=== PATIENT | female | born 2000 | race Caucasian/White ===

== ENCOUNTER 2019-01-08 05:16 | Emergency (ER) | payer MEDICAID ==
[~2019-01-08] VITALS: Ht 170.2 cm; Wt 108.9 kg
[2019-01-08 05:30] VITALS: BP 125/79
[2019-01-08 07:12] LABS: Basophils # (auto) 0 uL; Eosinophils # (auto) 0.1 uL; Monocytes # (auto) 0.6 uL; Neutrophils # (auto) 7.2 uL
[2019-01-08 07:16] LABS: Basophils % (auto) 0.4 % (0.0-2.0); Eosinophils % (auto) 1.4 % (0.0-7.0); Hematocrit 39.1 % (36.0-46.0); Hemoglobin 12.9 g/dL (12.2-16.2); Lymphocytes # (auto) 1.3 uL; Lymphocytes % (auto) 13.7 % (10.0-50.0); Mean Corpuscular Hemoglobin 25.8 pg (28.0-32.0); Mean Corpuscular Volume 78.1 fL (80.0-100.0); Monocytes % (auto) 6.8 % (0.0-12.0); Neutrophils % (auto) 77.7 % (37.0-80.0); Platelet Count (auto) 256 10^3/uL (140-450); Red Cell Distribution Width 15.3 % (11.8-14.3); White Blood Cell 9.3 10^3/uL (4.4-10.8)
[2019-01-08 07:23] LABS: INR 0.97 (0.9-1.15); Partial Thromboplastin Time 23.9 sec (23.64-32.05)
[2019-01-08] MEDS ORDERED: ALUM & MAG HYDROX-SIMETH LIQ(MAALOX) 30 ML PO ONE (07:45)
[2019-01-08] MEDS ORDERED: LIDOCAINE VISCOUS 2% 15ML UD PO ONE (07:45)
[2019-01-08] MEDS ORDERED: DONNATAL 5ml ORAL Elix (BELLADONNA ALK-PHENOBARB) PO ONE (07:45)
[2019-01-08 08:01] LABS: Urine Amorphous Crystal FEW /hpf (None Seen); Urine Bacteria MOD /hpf (None Seen); Urine Blood 1+ /uL (Negative); Urine Mucus FEW (None Seen); Urine WBC 79 /hpf (0 - 5)
[2019-01-08] MEDS ORDERED: FOLIC ACID 1 MG TAB PO ONE (08:15)
[2019-01-08 08:23] LABS: Albumin 3.4 g/dL (3.4-5.0); Calcium 8.8 mg/dL (8.5-10.1); Magnesium 2.1 mg/dL (1.6-2.6); Potassium 3.3 mmol/L (3.5-5.1)
[2019-01-08 08:27] LABS: BUN/Creatinine Ratio 12.9; Bilirubin, Total 0.3 mg/dL (0.2-1.0); Total Protein 6.9 g/dL (6.4-8.2)
== END 2019-01-08 08:48 | disposition left against medical advice (07) ==
LOC: ER 05:16
DX: O21.9 Vomiting of pregnancy, unspecified (principal); O26.891 Other specified pregnancy related conditions, first trimester; R10.13 Epigastric pain; R19.7 Diarrhea, unspecified; Z3A.00 Weeks of gestation of pregnancy not specified
CPT/HCPCS: 36415; 80053; 81001; 81025; 82150; 83690; 83735; 85025; 85610; 85730

== ENCOUNTER 2019-01-18 00:40 | Emergency (ER) | payer MEDICAID ==
[~2019-01-18] VITALS: Ht 170.2 cm; Wt 110.2 kg
[2019-01-18 02:21] LABS: Urine Bacteria FEW /hpf (None Seen); Urine Blood TRACE /uL (Negative); Urine Mucus FEW (None Seen); Urine Specific Gravity 1.012 (1.001-1.035); Urine WBC 1 /hpf (0 - 5)
[2019-01-18 02:21] LABS: Basophils # (auto) 0.1 uL; Basophils % (auto) 0.8 % (0.0-2.0); Eosinophils # (auto) 0.2 uL; Hemoglobin 12.6 g/dL (12.2-16.2); Lymphocytes # (auto) 1.6 uL; Mean Corpuscular Hemoglobin 26.3 pg (28.0-32.0); Monocytes # (auto) 0.7 uL
[2019-01-18 02:23] LABS: Eosinophils % (auto) 3.1 % (0.0-7.0); Lymphocytes % (auto) 21.2 % (10.0-50.0); Mean Corpuscular Volume 77.4 fL (80.0-100.0); Monocytes % (auto) 9.5 % (0.0-12.0); Neutrophils # (auto) 4.8 uL; Neutrophils % (auto) 65.4 % (37.0-80.0); Platelet Count (auto) 257 10^3/uL (140-450); Red Blood Cells 4.78 10^6/uL (4.0-5.20); Red Cell Distribution Width 15.3 % (11.8-14.3); White Blood Cell 7.4 10^3/uL (4.4-10.8)
[2019-01-18 02:39] LABS: Albumin 3.4 g/dL (3.4-5.0); Calcium 8.5 mg/dL (8.5-10.1); Potassium 3.4 mmol/L (3.5-5.1)
[2019-01-18 02:41] LABS: BUN/Creatinine Ratio 13.2
[2019-01-18 02:43] LABS: Bilirubin, Total 0.2 mg/dL (0.2-1.0)
[2019-01-18 03:22] VITALS: BP 130/67
== END 2019-01-18 05:26 | disposition home or self-care (01) ==
LOC: ER 00:42
DX: O20.0 Threatened abortion (principal); Z3A.01 Less than 8 weeks gestation of pregnancy
CPT/HCPCS: 36415; 76801; 80053; 81001; 84702; 85025

== ENCOUNTER 2019-04-03 22:20 | Inpatient (IN) | payer MEDICAID ==
[~2019-04-03] VITALS: Ht 170.2 cm; Wt 107.9 kg
[2019-04-03 22:58] LABS: Basophils # (auto) 0 uL; Eosinophils # (auto) 0.1 uL; Monocytes # (auto) 0.6 uL
[2019-04-03 23:00] LABS: Basophils % (auto) 0.1 % (0.0-2.0); Eosinophils % (auto) 1.5 % (0.0-7.0); Hematocrit 41.3 % (36.0-46.0); Hemoglobin 14.1 g/dL (12.2-16.2); Lymphocytes # (auto) 0.8 uL; Lymphocytes % (auto) 10.1 % (10.0-50.0); Mean Corpuscular Hemoglobin 27.2 pg (28.0-32.0); Mean Corpuscular Hgb Conc. 34.2 g/dL (32.0-36.0); Mean Corpuscular Volume 79.3 fL (80.0-100.0); Monocytes % (auto) 7.8 % (0.0-12.0); Neutrophils # (auto) 6.7 uL; Neutrophils % (auto) 80.5 % (37.0-80.0); Platelet Count (auto) 212 10^3/uL (140-450); Red Blood Cells 5.21 10^6/uL (4.0-5.20); Red Cell Distribution Width 16.5 % (11.8-14.3); White Blood Cell 8.3 10^3/uL (4.4-10.8)
[2019-04-03 23:17] LABS: Albumin 3.1 g/dL (3.4-5.0); Calcium 8.3 mg/dL (8.5-10.1); Potassium 3.6 mmol/L (3.5-5.1)
[2019-04-03 23:19] LABS: BUN/Creatinine Ratio 10.3
[2019-04-03 23:22] LABS: Urine Bacteria FEW /hpf (None Seen); Urine Blood Negative /uL (Negative); Urine Mucus FEW (None Seen); Urine Specific Gravity 1.034 (1.001-1.035); Urine WBC 23 /hpf (0 - 5)
[2019-04-03 23:22] LABS: Bilirubin, Total 0.3 mg/dL (0.2-1.0); Total Protein 7.2 g/dL (6.4-8.2)
[2019-04-03] MEDS ORDERED: SODIUM CHLORIDE 0.9% 1,000 ML IVB ONE (23:35)
[2019-04-03] MEDS ORDERED: ONDANSETRON HCL 4 MG/2 ML VIAL IV ONE (23:45)
[2019-04-03] MEDS ORDERED: HYDROmorphone HCL 2 MG/ML VL IV ONE (23:45)
[2019-04-03 23:51] LABS: Amylase 34 U/L (25-115); Lipase 65 U/L (73-393)
[2019-04-04] MEDS ORDERED: ONDANSETRON HCL 4 MG/2 ML VIAL IV ONE (02:00)
[2019-04-04] MEDS ORDERED: cefTRIAXone 1GM/50ML D5W 50 ML IV ONE (02:30)
[2019-04-04] MEDS ORDERED: SODIUM CHLORIDE 0.9% 1,000 ML IV ONE (02:30)
[2019-04-04] MEDS ORDERED: HYDROmorphone HCL 2 MG/ML VL IV ONE (03:00)
[2019-04-04] MEDS ORDERED: PROMETHAZINE HCL 25 MG/ML 1ML IV ONE (03:45)
[2019-04-04] MEDS ORDERED: PROMETHAZINE HCL 25 MG/ML 1ML IV PRN ×2 (05:45→13:30)
[2019-04-04] MEDS: SODIUM CHLORIDE 0.9% 1,000 ML IV SCH ×2 (06:45→18:39)
[2019-04-04] MEDS: METOCLOPRAMIDE HCL 5MG/ml INJ 2ml VIAL IV SCH ×2 (14:03→21:37)
[2019-04-04 17:02] VITALS: BP 104/55
[2019-04-04] MEDS ORDERED: cefTRIAXone 1GM/50ML D5W 50 ML IV SCH (21:00)
[2019-04-04 22:23] VITALS: BP 108/64
== END 2019-04-04 23:45 | disposition left against medical advice (07) | DRG 566 ==
LOC: ER 22:20 → OVERFLOW 22:21 → EAST 04-04 08:35
PROVIDERS: ADMIT Nurse Practitioner; ATTEND Internal Medicine
DX: O26.612 Liver and biliary tract disorders in pregnancy, second trimester (principal); O23.42 Unspecified infection of urinary tract in pregnancy, second trimester; O99.89 Other specified diseases and conditions complicating pregnancy, childbirth and the puerperium; K80.20 Calculus of gallbladder without cholecystitis without obstruction; O21.1 Hyperemesis gravidarum with metabolic disturbance; Z86.32 Personal history of gestational diabetes; Z3A.17 17 weeks gestation of pregnancy
CPT/HCPCS: 36415; 76705; 76805; 80053; 81001; 82150; 83690; 83735; 84702; 85025; 96361; 96365; 96375; G0378; J0696; J2405

== ENCOUNTER 2019-07-31 01:21 | Observation (INO) | payer MEDICAID ==
[~2019-07-31] VITALS: Ht 167.6 cm; Wt 120.2 kg
[2019-07-31] MEDS ORDERED: ONDANSETRON HCL 4 MG/2 ML VIAL IV PRN (02:00)
[2019-07-31] MEDS ORDERED: LACTATED RINGER'S 1,000 ML IV SCH (02:00)
[2019-07-31] MEDS ORDERED: PREN27TA7 PO (03:28)
[2019-07-31 04:06] LABS: Amphetamine Screen, Urine NEGATIVE (NEGATIVE); Barbiturate Scree,Urine NEGATIVE (NEGATIVE); Benzodiazephine Screen, Urine NEGATIVE (NEGATIVE); Cannabinoid Screen, Urine POSITIVE (NEGATIVE); Cocaine Screen, Urine NEGATIVE (NEGATIVE)
[2019-07-31 04:13] LABS: Opiate Scree,Urine NEGATIVE (NEGATIVE); Phencyclidine Screen, Urine NEGATIVE (NEGATIVE)
[2019-07-31 04:25] LABS: Urine Amorphous Crystal MOD /hpf (None Seen); Urine Bacteria FEW /hpf (None Seen); Urine Blood Negative /uL (Negative); Urine Hyaline Cast FEW /lpf (0 - 2); Urine Mucus FEW (None Seen); Urine Specific Gravity 1.033 (1.001-1.035); Urine WBC 4 /hpf (0 - 5)
== END 2019-07-31 05:50 | disposition home or self-care (01) | DRG 566 ==
LOC: LDRP 01:21
PROVIDERS: ADMIT Specialist; ATTEND Specialist
DX: O99.613 Diseases of the digestive system complicating pregnancy, third trimester (principal); K80.20 Calculus of gallbladder without cholecystitis without obstruction; O21.2 Late vomiting of pregnancy; Z3A.34 34 weeks gestation of pregnancy
CPT/HCPCS: 59025; 76705; 76805; 80307; 81001; 81002; 96361; 96374; G0378; J2405; 96360; 96365; 96366

== ENCOUNTER 2020-11-05 08:43 | Emergency (ER) | payer MEDICAID ==
[~2020-11-05] VITALS: Ht 170.2 cm; Wt 117.9 kg
[~2020-11-05 08:43] MED LIST: PREN27TA7 PO
[2020-11-05 08:46] VITALS: BP 126/85
[2020-11-05 09:18] LABS: Urine WBC None Seen /hpf (0 - 5)
[2020-11-05 09:26] LABS: Urine Amorphous Crystal FEW /hpf (None Seen); Urine Bacteria NONE SEEN /hpf (None Seen); Urine Blood Negative /uL (Negative); Urine Mucus FEW (None Seen); Urine Specific Gravity 1.027 (1.001-1.035)
[2020-11-05 09:34] LABS: Albumin 3.9 g/dL (3.4-5.0); Basophils # (auto) 0.1 10 ^3/uL (0-0.2); Basophils % (auto) 0.4 % (0.0-2.0); Calcium 8.9 mg/dL (8.5-10.1); Eosinophils # (auto) 0 10 ^3/uL (0-0.8); Eosinophils % (auto) 0.2 % (0.0-7.0); Neutrophils # (auto) 14.6 10 ^3/uL (1.6-8.6); Potassium 4.1 mmol/L (3.5-5.1); Red Cell Distribution Width 14.5 % (11.8-14.3)
[2020-11-05 09:36] LABS: Hematocrit 43.1 % (36.0-46.0); Hemoglobin 14.4 g/dL (12.2-16.2); Lymphocytes # (auto) 1.6 10 ^3/uL (0.4-5.4); Lymphocytes % (auto) 9.3 % (10.0-50.0); Mean Corpuscular Hemoglobin 25.9 pg (28.0-32.0); Mean Corpuscular Hgb Conc. 33.4 g/dL (32.0-36.0); Mean Corpuscular Volume 77.5 fL (80.0-100.0); Monocytes # (auto) 0.9 10 ^3/uL (0-1.3); Monocytes % (auto) 5.5 % (0.0-12.0); Neutrophils % (auto) 84.6 % (37.0-80.0); Nucleated Red Blood Cells % 0.2 %; Platelet Count (auto) 375 10^3/uL (140-450); Red Blood Cells 5.56 10^6/uL (4.0-5.20); White Blood Cell 17.3 10^3/uL (4.4-10.8)
[2020-11-05 09:37] LABS: BUN/Creatinine Ratio 10.6; Bilirubin, Total 0.4 mg/dL (0.2-1.0); Total Protein 8.3 g/dL (6.4-8.2)
[2020-11-05] MEDS ORDERED: THIAMINE 100mg/ml INJ (200mg/2ml VIAL) IV ONE (11:00)
[2020-11-05] MEDS ORDERED: cefTRIAXone 1GM/50ML D5W 50 ML IV ONE (11:00)
[2020-11-05] MEDS ORDERED: SODIUM CHLORIDE 0.9% 1,000 ML IV ONE ×2 (11:00)
== END 2020-11-05 14:03 | disposition left against medical advice (07) ==
LOC: ER 08:43
DX: E86.0 Dehydration (principal); N39.0 Urinary tract infection, site not specified
CPT/HCPCS: 36415; 80053; 81001; 81025; 85025

== ENCOUNTER 2022-05-03 18:17 | Emergency (ER) | payer MEDICAID ==
[~2022-05-03] VITALS: Ht 170.2 cm; Wt 97.0 kg
[2022-05-03 19:11] VITALS: BP 124/72
[2022-05-03] MEDS ORDERED: ONDANSETRON HCL 4 MG/2 ML VIAL IV ONE (19:15)
[2022-05-03] MEDS ORDERED: MORPHINE SULFATE 4 MG/ML SYR/VIAL IV ONE (19:15)
[2022-05-03] MEDS ORDERED: SODIUM CHLORIDE 0.9% 1,000 ML IV ONE (19:15)
[2022-05-03 19:50] LABS: Basophils # (auto) 0 10 ^3/uL (0-0.2); Eosinophils # (auto) 0 10 ^3/uL (0-0.8); Hemoglobin 12.7 g/dL (12.2-16.2); Lymphocytes # (auto) 0.3 10 ^3/uL (0.4-5.4); Neutrophils # (auto) 3.3 10 ^3/uL (1.6-8.6); White Blood Cell 4.1 10^3/uL (4.4-10.8)
[2022-05-03 19:54] LABS: Basophils % (auto) 0.2 % (0.0-2.0); Eosinophils % (auto) 0.1 % (0.0-7.0); Hematocrit 38.1 % (36.0-46.0); Lymphocytes % (auto) 7.2 % (10.0-50.0); Mean Corpuscular Hemoglobin 24.9 pg (28.0-32.0); Mean Corpuscular Hgb Conc. 33.4 g/dL (32.0-36.0); Mean Corpuscular Volume 74.6 fL (80.0-100.0); Monocytes # (auto) 0.5 10 ^3/uL (0-1.3); Monocytes % (auto) 11.6 % (0.0-12.0); Neutrophils % (auto) 80.9 % (37.0-80.0); Red Blood Cells 5.11 10^6/uL (4.0-5.20); Red Cell Distribution Width 15.1 % (11.8-14.3)
[2022-05-03] MEDS ORDERED: ACETAMINOPHEN 325 MG TAB PO ONE (21:00)
[2022-05-03 21:31] LABS: Alanine Aminotransferase 23 U/L (13-56); Albumin 3.7 g/dL (3.4-5.0); Anion Gap 10 (5-15); Aspartate Aminotransferase 13 U/L (15-37); BUN/Creatinine Ratio 7.7; Blood Urea Nitrogen 6 mg/dL (7-18); Calcium 8.7 mg/dL (8.5-10.1); Carbon Dioxide 23 mmol/L (21-32); Chloride 105 mmol/L (98-107); GFR African American 118 mL/min; GFR Non-African American 97 mL/min; Glucose 107 mg/dL (74-106); Potassium 3.8 mmol/L (3.5-5.1); Sodium 138 mmol/L (136-145)
[2022-05-03 21:36] LABS: Alkaline Phosphatase 73 U/L (45-117); Bilirubin, Total 0.3 mg/dL (0.2-1.0); Total Protein 7.6 g/dL (6.4-8.2)
== END 2022-05-03 21:35 | disposition left against medical advice (07) ==
LOC: ER 18:19
DX: E86.0 Dehydration (principal); B34.9 Viral infection, unspecified; R51.9 Headache, unspecified; Z79.899 Other long term (current) drug therapy; Z20.822 Contact with and (suspected) exposure to COVID-19
CPT/HCPCS: 36415; 80053; 85025; 87426; 87804; 93005

== ENCOUNTER 2024-02-20 16:36 | Emergency (ER) | payer MEDICAID ==
[~2024-02-20] VITALS: Ht 170.2 cm; Wt 127.8 kg
[2024-02-20 16:38] VITALS: BP 154/76; PULSE 97; RESP 8; O2SAT 97
[2024-02-20 17:18] LABS: Urine Bacteria None Seen /hpf (None Seen)
[2024-02-20 17:58] LABS: Urine Amorphous Crystal MANY /hpf (None Seen); Urine Blood 1+ /uL (Negative); Urine Clarity Ex.Turbid (Clear); Urine Color Dark-Brown (Yellow); Urine Mucus FEW (None Seen); Urine Protein, UAD 1+ (Negative); Urine Urobilinogen Normal (Negative); Urine WBC 5 /hpf (0 - 5); Urine WBC Clumps PRESENT /hpf (None Seen); Urine pH 5.5 (5.0-9.0)
== END 2024-02-20 20:33 | disposition left against medical advice (07) ==
LOC: ER 16:36
DX: O20.9 Hemorrhage in early pregnancy, unspecified (principal); F15.90 Other stimulant use, unspecified, uncomplicated; Z3A.08 8 weeks gestation of pregnancy; Z98.890 Other specified postprocedural states; Z87.891 Personal history of nicotine dependence; Z91.040 Latex allergy status; Z79.899 Other long term (current) drug therapy
CPT/HCPCS: 81001